=== PATIENT | female | born 1990 | race Hispanic/Latino ===

== ENCOUNTER 2017-06-10 02:10 | Inpatient (IN) | payer MEDICAID, SELFPAY ==
[2017-06-10 02:41] LABS: #Eosinphils 0.1 thou/uL (0.0-0.7); #Lymphocytes 1.7 thou/uL (1.20-3.40); #Monocytes 0.5 thou/uL (0.11-0.59); %Basophils 0.3 % (0.0-1.0); %Eosinophils 0.5 % (0.0-10.0); %Lymphocytes 15.3 % (21.0-51.0); %Monocytes 4.3 % (0.0-10.0); Hematocrit 35.9 % (36.0-47.0); Red Blood Cell (RBC) Count 3.89 mill/uL (4.20-5.40); White Blood Cell (WBC) Count 11.4 thou/uL (4.8-10.8)
[2017-06-10 02:44] LABS: Bilirubin Negative (Negative); Blood, Urine Large (Negative); Glucose, Urine (Dipstick) Negative (Negative); Ketone, Urine Negative (Negative); Nitrite Negative (Negative); Protein, Urine (Dipstick) Trace mg/dL (Neg-Trace)
[2017-06-10 02:47] LABS: Bacteria/HPF None Seen HPF (None Seen); Hyaline Casts/LPF 4-6 HYALINE CAST LPF (0-3 Hyaline); RBC/HPF GREATER THAN 50-TNTC HPF (0-3); WBC/HPF 0-3 HPF (0-3)
[2017-06-10] MEDS ORDERED: Morphine 4 MG/ML VIAL ONE (04:25)
[2017-06-10] MEDS ORDERED: Ondansetron HCl/PF 4 MG/2 ML Vial IVP PRN (05:00)
[2017-06-10] MEDS ORDERED: Morphine 4 MG/ML VIAL SLOW IVP PRN (05:03)
[2017-06-10 06:46] LABS: #Lymphocytes 1.7 thou/uL (1.20-3.40); #Monocytes 0.6 thou/uL (0.11-0.59); %Basophils 0.2 % (0.0-1.0); %Eosinophils 0.3 % (0.0-10.0); %Lymphocytes 14.7 % (21.0-51.0); %Monocytes 5.2 % (0.0-10.0); Hematocrit 32.9 % (36.0-47.0); Mean Platelet Volume 6.8 fL (7.4-10.4); Red Blood Cell (RBC) Count 3.54 mill/uL (4.20-5.40); White Blood Cell (WBC) Count 11.3 thou/uL (4.8-10.8)
[2017-06-10 07:55] VITALS: BMI 31.6
[2017-06-10] MEDS ORDERED: Morphine 10 MG/ML VIAL ONE (08:16)
[2017-06-10] MEDS: Dextrose 5%-Lactated Ringers 1,000 ML IV SCH ×2 (08:24→15:49)
--- NOTE | 2017-06-10 08:44 | ULT ---
PRELIMINARY REPORT/[facility]/EMERGENCY AFTER HOURS PROCEDURE: EXAM: US , Transvaginal CLINICAL HISTORY: 26 years old, female; Pain; Other: Pelvic pain, vag bleeding; Gestational age or lmp: 15wks; TECHNIQUE: Real-time transvaginal obstetrical ultrasound of the maternal pelvis and a first trimester with image documentation. Transvaginal imaging was used for better evaluation of the fetus and adnexa . COMPARISON: No relevant prior studies available. FINDINGS: There is a single, live intrauterine gestation. Presentation: Cephalic. heart rate: 175 BPM. 4 chamber heart: Identified Placenta: Grade: Previa: Yes No Amniotic fluid volume: anatomy: Stomach: Normal Kidneys: Normal Bladder: Normal Spine: Normal Biometry: BPD: 2.9 cm. 15 weeks, 2 days. HC: 10.9 cm. 15 weeks, 1 day. AC: 9.1 cm. 15 weeks, 2 days. FL : 1.7 cm. 15 weeks 0 days. Composite sonographic age: 15 weeks, 1 day. Estimated date of confinement: 12.01.17. Impression: Single, live intrauterine gestation without visible complication. Thank you for allowing us to participate in the care of your patient. Dictated and Authenticated by: Luli Tellez MD 06/10/2017 4:11 AM Central Time ([place] & [place]) FINAL REPORT OB ULTRASOUND: Date: 06/10/17 HISTORY: 26-year-old female with pelvic pain, vaginal bleeding. TECHNIQUE: Multiple longitudinal and transverse images of an intrauterine obtained using a multihertz curvilinear transducer. Real-time, color flow, and spectral waveform Doppler analysis used to evaluat e the fetus and pelvis. FINDINGS: Images demonstrate what appears to be a viable intrauterine at this time. There appears to be an area of linear marked hyperechogenicity within the uterine cavity as well. This may represent a n intrauterine device. Correlate with patient's history. The fetus is viable at this time with the IU D also in the uterine cavity. cardiac activity measures 175 beats/minute. Findings called to Dr. Zuleta at 0811 hours on 06/10/17. CODE CR. POS: [facility]
[2017-06-10 13:00] LABS: Hematocrit 32.5 % (36.0-47.0); Mean Platelet Volume 6.8 fL (7.4-10.4); Red Blood Cell (RBC) Count 3.51 mill/uL (4.20-5.40); White Blood Cell (WBC) Count 12.7 thou/uL (4.8-10.8)
[2017-06-10] MEDS ORDERED: Acetaminophen 500 MG TAB PO PRN (20:16)
--- NOTE | 2017-06-11 07:39 | PRG ---
DATE OF SERVICE: 06/11/2017 TIME OF SERVICE: 0715 The patient remained in Labor and Delivery unit overnight at 15 weeks with vaginal bleeding. The pat ient was noted around 0630 to have a sudden gush of bloodish tinge, but mostly clear fluid. She holly ed contractions. PHYSICAL EXAMINATION: VITAL SIGNS: Vital signs remained stable. Ultrasound was obtained which reveals now almost complete absence of amniotic fluid. FHTs are now down to 70s. The cervix does not appear visually dilated. IMPRESSION: Spontaneous rupture of membranes, now with inevitable AB at 15 weeks gestation and decre asing heart tone rate. PLAN: Will check patient out with Dr. Martinez. Anticipate a cessation of heart activity likel y within the next 12 hours. Once this is noted would proceed with Cytotec for delivery of inevitable .
[2017-06-11] MEDS: Dextrose 5%-Lactated Ringers 1,000 ML IV SCH ×4 (07:46→15:03)
[2017-06-11] MEDS ORDERED: Misoprostol 100 MCG TAB VAG SCH ×2 (08:00)
--- NOTE | 2017-06-11 08:03 | PRG ---
DATE OF SERVICE: 06/11/2017 TIME OF SERVICE: 0745 The patient over the past 10-15 minutes has developed a fever of 100.5 and significant cramps. With clinical rupture of membranes, previable gestation and fever she meets the criteria for septic incomp lete/missed AB at this time. We will go ahead and start the patient on ampicillin and gentamicin. T wo grams of ampicillin q.6h. and gentamicin 80 q.8h. I have discussed the case with Katerina, the AD o n call who is also on the Ethics Committee and she agrees with the ethical requirements for treatment of the patient at this time with antibiotics and delivery of the fetus. We will begin Cytotec 600 m cg per vagina q.4h. Dr. Martinez will be on shift in 15 minutes and is very fluent in [place] and vivian lindsey discuss plan of care with the patient. The patient's dietary status was changed to clear liquids o nly.
[2017-06-11] MEDS: Ampicillin 2 GM, Syringe 5.2 ML in Sterile Water 14.8 ML SLOW IVP SCH ×4 (08:30→22:01)
[2017-06-11] MEDS ORDERED: Morphine 10 MG/ML VIAL ONE ×2 (08:35→12:19)
[2017-06-11] MEDS ORDERED: Ampicillin 2 GM in Sodium Chloride 0.9% 100 ML IVPB SCH ×2 (09:00→12:00)
[2017-06-11] MEDS: Gentamicin Sulfate 80 MG in Premix Bag 1 BAG IVPB SCH ×3 (09:07→23:49)
--- NOTE | 2017-06-11 11:01 | ULT ---
ULTRASOUND OB FOLLOWUP: Date: 06/11/17 HISTORY: Spontaneous rupture of membranes, check feta heart tones. FINDINGS: The amniotic fluid volume is decreased from comparison examination. Amniotic fluid index is 1.0 cm. F etal heart rate is documented at 70 beats/minute. IMPRESSION: 1. Decreased amniotic fluid index, now approximately 1.0 cm. 2. Abnormally low heart rate of 70 beats/minute. POS: [facility]
[2017-06-11] MEDS ORDERED: Oxytocin 10 UNITS/ML VIAL ONE (11:55)
[2017-06-11] MEDS: Misoprostol 100 MCG TAB VAG SCH ×2 (12:11→17:32)
[2017-06-11] MEDS ORDERED: Gentamicin Sulfate 80 MG in Premix Bag 1 BAG IVPB SCH (14:00)
[2017-06-11] MEDS: Lactated Ringer's 1,000 ML IV SCH ×3 (15:05→23:48)
[2017-06-11] MEDS ORDERED: Ibuprofen 800 MG TAB PO PRN (15:20)
[2017-06-11] MEDS ORDERED: Ibuprofen 800 MG TAB PO SCH (15:30)
[2017-06-11] MEDS ORDERED: Lactated Ringer's 1,000 ML IV SCH (16:00)
[2017-06-11] MEDS ORDERED: Misoprostol 200 MCG TAB PR SCH ×2 (18:30)
[2017-06-11] MEDS ORDERED: Misoprostol 200 MCG TAB PO SCH (18:30)
[2017-06-11] MEDS ORDERED: Bisacodyl 10 MG SUPP PR PRN (19:04)
[2017-06-11] MEDS ORDERED: LR / Pitocin 40 units/1000 ml 1,000 ML IV SCH (19:04)
[2017-06-11] MEDS ORDERED: Milk Of Magnesia 30 ML UDCUP PO PRN (19:04)
[2017-06-11] MEDS ORDERED: Adacel (T-DAP) 0.5 ML VIAL IM ONE (19:04)
[2017-06-11] MEDS ORDERED: Ferrous Sulfate 325 MG TAB PO SCH (19:15)
[2017-06-11 20:58] LABS: #Lymphocytes 1.7 thou/uL (1.20-3.40); #Monocytes 0.6 thou/uL (0.11-0.59); #Neutrophils 10.1 thou/uL (1.40-6.50); %Basophils 0.2 % (0.0-1.0); %Eosinophils 0.3 % (0.0-10.0); %Lymphocytes 13.3 % (21.0-51.0); %Monocytes 4.9 % (0.0-10.0); Hematocrit 19.5 % (36.0-47.0); Mean Platelet Volume 6.8 fL (7.4-10.4); Red Blood Cell (RBC) Count 2.09 mill/uL (4.20-5.40); White Blood Cell (WBC) Count 12.4 thou/uL (4.8-10.8)
[2017-06-11] MEDS: Ibuprofen 800 MG TAB PO SCH (22:02)
[2017-06-11] MEDS: Docusate (Surfak) 240 MG CAP PO SCH (22:02)
[2017-06-12] MEDS: Ampicillin 2 GM, Syringe 5.2 ML in Sterile Water 14.8 ML SLOW IVP SCH (03:06)
[2017-06-12] MEDS: Ibuprofen 800 MG TAB PO SCH ×2 (05:23→16:26)
[2017-06-12 05:59] LABS: Hematocrit 17.8 % (36.0-47.0); Mean Platelet Volume 6.9 fL (7.4-10.4); Red Blood Cell (RBC) Count 1.88 mill/uL (4.20-5.40); White Blood Cell (WBC) Count 8.5 thou/uL (4.8-10.8)
[2017-06-12] MEDS: Lactated Ringer's 1,000 ML IV SCH (06:31)
[2017-06-12] MEDS ORDERED: Ferrous Sulfate 325 MG TAB PO SCH (08:00)
--- NOTE | 2017-06-12 08:16 | DN ---
DATE OF DELIVERY: 06/11/2017 The patient delivered a nonviable 15-week fetus on 06/11/2017 at 11:40 a.m. The estimated blood loss was 1000 mL. Maternal complications; chorioamnionitis and retained IUD which delivered with placenta and acute blood loss anemia. The placenta delivered with some assistance of ring forceps at the cervical os. Delivery time of placenta was 1305. Mother remained stable in the room. Baby was delivered without a heartbeat and appeared to grossly have normal anatomy. Dr Martinez is the delivering physician. [facility]ENTER[facility]
--- NOTE | 2017-06-12 08:27 | SS ---
DATE OF ADMISSION: 06/11/2017 DATE OF DISCHARGE: 06/12/2017 ADMITTING DIAGNOSIS: Threatened . DISCHARGE DIAGNOSES: Chorioamnionitis, premature rupture of membranes, completed AB and acut e blood loss anemia. PROCEDURE: Vaginal delivery of a 15-week demise. CONSULTATIONS: None. HOSPITAL COURSE: Patient is a 26-year-old female who presented to the emergency room after having ac hopi severe bleeding and was admitted to the hospital for observation for threatened AB. At that time , ultrasound demonstrated a normal appearing fetus in vertex presentation with a closed cervix and vi able heartbeat. Over the course of the patient's stay, she stopped bleeding and by the next morning, spontaneously ruptured and spiked a fever with repeat ultrasound demonstrating no fluid and a heart rate of 70. At this point time due to maternal education, patient was started on Cytotec to au gment her labor and subsequently delivered a nonviable 15-week fetus that had no heartbeat at time of delivery. The placenta delivered about an hour and half later with some assistance the os. Total e stimated blood loss was approximately 1000 mL by weight. However, her hemoglobin dropped from 11-5.9 and hematocrit 32.5-17.8. The patient's course has been uncomplicated. Her v ital signs remained stable with no signs of symptomatic anemia. Patient is able to ambulate to the b athroom and back without any complaints or concerns. She denies any dizziness, lightheadedness, ches t pain, shortness of breath. The patient has remained on antibiotics for 24 hours postdelivery. PHYSICAL EXAMINATION: VITAL SIGNS: This morning, current blood pressure at sleeping, blood pressure 80/44, pulse is 78, re spiratory rate of 16, temperature 98.5. Of note, patient has had low blood pressures for the entire admission with her baseline in the 80s-90s systolic at rest. Patient this morning denies any chest p ain, shortness of breath, dizziness, lightheadedness. She reports her bleeding is scant. ABDOMEN: Fundus is firm. EXTREMITIES: Nontender, nonedematous. GENITOURINARY: She has one spot on her pad. The patient has been asked prior to discharge to ambulate the halls and walk one flight of stairs. S hould the patient remained asymptomatic, patient will be discharged without blood transfusion. It is suspected that part of her lab results were a result of significant fluid administration as she has had 6 liters of fluid in the last 2 days with much of it in the last 24 hours. Should the patient ex hibited symptoms with this activity, patient will be transfused prior to discharge. Patient has inst ructions to follow up at the Clinic in the next 2 weeks. She is to seek medical attention s ooner if she experiences fever, increasing pain or bleeding or becomes symptomatic with her anemia in cluding chest pain, dizziness, lightheadedness, headache, extreme fatigue.
[2017-06-12] MEDS: Docusate (Surfak) 240 MG CAP PO SCH (08:39)
[2017-06-12] MEDS ORDERED: Prenatal Vitamin 1 TAB PO SCH (09:00)
[2017-06-12 18:04] VITALS: BP 90/50; TEMP 98.1
== END 2017-06-12 18:55 | disposition home or self-care (01) | DRG 770 ==
LOC: ERS 02:10 → OBSVTOIN 05:00 → L&D 05:00 → 3SW 06-11 18:52
PROVIDERS: ADMIT Obstetrics & Gynecology Obstetrics; ATTEND Obstetrics & Gynecology Obstetrics
PROC: 10D17Z9 Manual Extraction of Products of Conception, Retained, Via Natural or Artificial Opening (ICD-10-PCS; principal; 2017-06-11)
PROC: 10E0XZZ Delivery of Products of Conception, External Approach (ICD-10-PCS; 2017-06-11)
PROC: 4A0HXCZ Measurement of Products of Conception, Cardiac Rate, External Approach (ICD-10-PCS; 2017-06-11)
DX: O02.1 Missed abortion (principal); A41.9 Sepsis, unspecified organism; O75.3 Other infection during labor; O41.1230 Chorioamnionitis, third trimester, not applicable or unspecified; O72.0 Third-stage hemorrhage; O26.33 Retained intrauterine contraceptive device in pregnancy, third trimester; O90.81 Anemia of the puerperium; O67.9 Intrapartum hemorrhage, unspecified; Z37.1 Single stillbirth; Z3A.15 15 weeks gestation of pregnancy; Y84.8 Other medical procedures as the cause of abnormal reaction of the patient, or of later complication, without mention of misadventure at the time of the procedure
CPT/HCPCS: 36415; 36430; 76815; 76816; 76856; 81003; 81015; 84702; 85025; 85027; 85384; 86850; 86900; 86901; 88300; 88305; 96361; 96374; 99285; A4216; J0290; J0595; J1580; J2270; J2405; J2590; J7050; P9016

== ENCOUNTER 2018-05-13 07:47 | Outpatient (CLI) | payer OTHER ==
--- NOTE | 2018-05-13 10:27 | ULT ---
ULTRASOUND OB COMPLETE STANDARD: History Anatomy. COMPARISON: None. FINDINGS: Real-time, perez scale, and color evaluation of the gravid uterus was performed. The cervix measures 3.8 cm in length. The placenta is anterior. There is a single viable intrauterine with average ultrasound age 20 weeks 1 day, estimated date of delivery 09/29/2018. Estimated weight is 12 ounces, 25th percentile. Biparietal diameter 4.51 cm, 19 weeks 5 days Head circumference 17.36 cm, 20 weeks 0 days Abdominal circumference 16.35 cm, 20 weeks 4 days Femur length 3.27 cm, 20 weeks 2 days Heart rate documented at 149 b.p.m. The anatomy is normal including the 3-vessel cord, spine, cisterna magna, lateral ventricles, stomach , kidneys, upper and lower extremities, 3-vessel cord. IMPRESSION: Normal single viable intrauterine . POS: [facility]
== END 2018-05-13 07:48 | disposition home or self-care (01) ==
LOC: BICULT 07:47
PROVIDERS: ATTEND Family Medicine
DX: Z34.82 Encounter for supervision of other normal pregnancy, second trimester (principal); Z3A.20 20 weeks gestation of pregnancy
CPT/HCPCS: 76805

== ENCOUNTER 2018-09-13 11:30 | Inpatient (IN) | payer OTHER, SELFPAY ==
[2018-09-19] MEDS ORDERED: Penicillin G Potassium 5 MILL.UNITS in Sodium Chloride 0.9% 100 ML IVPB SCH (08:56)
[2018-09-19] MEDS ORDERED: Carboprost 250 MCG/ML AMP IM PRN (08:56)
[2018-09-19] MEDS ORDERED: Promethazine HCl 25 MG/ML VIAL IM PRN ×3 (08:56→15:38)
[2018-09-19] MEDS ORDERED: NS / Oxytocin 40 units/1000ml 1,000 ML IV PRN (08:56)
[2018-09-19] MEDS ORDERED: Diphenoxylate HCl/Atropine Tablet PO PRN (08:56)
[2018-09-19] MEDS ORDERED: Lidocaine 1% (PF) 30 ML VIAL SC PRN (08:56)
[2018-09-19] MEDS ORDERED: Misoprostol 200 MCG TAB PR PRN (08:56)
[2018-09-19] MEDS ORDERED: Methylergonovine 0.2 MG/ML VIAL IM PRN (08:56)
[2018-09-19] MEDS ORDERED: HYDROcodone/Acetaminophen 5/325 mg Tablet PO PRN ×3 (08:56→17:52)
[2018-09-19] MEDS ORDERED: NS w/ Oxytocin 10 units 500 ML IV SCH ×2 (08:56)
[2018-09-19] MEDS ORDERED: Ibuprofen 800 MG TAB PO PRN (08:56)
[2018-09-19] MEDS ORDERED: Butorphanol Tartrate 1 MG/ML VIAL SLOW IVP PRN (08:56)
[2018-09-19] MEDS ORDERED: Ondansetron PF 4 MG/2 ML Vial IVP PRN ×4 (08:56→17:52)
[2018-09-19] MEDS ORDERED: Bupivacaine 0.25% HCL 30 ML VIAL ONE (09:00)
[2018-09-19 09:37] VITALS: BMI 31.7
--- NOTE | 2018-09-19 09:59 | PDOC.EVN ---
Event Note - Event Note Event Note: Asked to evaluate presentation prior to starting pitocin by labor RN. PARVEEN at confirms vtx. Dr. Arriaga notified.
[2018-09-19] MEDS: Lactated Ringer's 1,000 ML IV SCH ×2 (10:05→21:23)
[2018-09-19 10:39] LABS: Hemoglobin 9.2 g/dL (12.0-16.0); Mean Corpuscular HGB CONC 32.1 g/dL (32.0-36.0); Mean Corpuscular Hemoglobin 25.9 pg (27.0-31.0); Mean Corpuscular Volume 80.6 fL (78.0-98.0); Platelet Count 236 thou/uL (130-400); RBC Distribution Width 14.6 % (11.5-14.5); Red Blood Cell (RBC) Count 3.57 mill/uL (4.20-5.40); White Blood Cell (WBC) Count 7.3 thou/uL (4.8-10.8)
[2018-09-19 11:17] LABS: Syphilis Antibody Nonreactive (Nonreactive); Syphilis Antibody Index 0.09 S/CO (<1.00 Non-Reactive)
[2018-09-19] MEDS ORDERED: Penicillin G 2.5 MILL.units 2.5 MILL.UNITS in Premix Bag 1 BAG IVPB SCH (12:00)
[2018-09-19 13:40] LABS: HBSAg Index 0.29 S/CO (0-0.99); Hep B Surf Ag Non-Reactive S/CO (NonReactive)
[2018-09-19] MEDS ORDERED: Fentanyl 4 mcg/Bup 0.1% Cadd 100 ML ONE (14:28)
[2018-09-19] MEDS ORDERED: Lidocaine 1.5%/Epinephrine 1:200,000 5 ML AMPUL IJ ONE (14:30)
[2018-09-19] MEDS ORDERED: diphenhydrAMINE 50 MG/ML VIAL IVP PRN ×2 (14:57→15:36)
[2018-09-19] MEDS ORDERED: Acetaminophen 325 MG TAB PO PRN ×2 (14:57→15:35)
[2018-09-19] MEDS ORDERED: Naloxone HCl 0.4 mg/ml Vial IVP PRN ×4 (14:57→15:38)
[2018-09-19] MEDS ORDERED: Lactated Ringer's 500 ML IV PRN ×2 (14:57→15:37)
[2018-09-19] MEDS ORDERED: Eucerin (Mineral Oil/Petrolatum,White) 30 gm Jar TOP PRN ×2 (14:57→15:37)
[2018-09-19] MEDS ORDERED: ePHEDrine/0.9% NaCl/PF SYRINGE 50 mg/10 ml SLOW IVP PRN ×2 (14:57→15:30)
[2018-09-19] MEDS ORDERED: Communication Order-Pharmacy FS SCH (15:00)
[2018-09-19] MEDS ORDERED: Fentanyl 4 mcg/Bupivacaine 0.1% Cassette 100 ML EPIDURAL SCH ×2 (15:00→15:45)
[2018-09-19] MEDS ORDERED: NS / Oxytocin 40 units/1000ml 1,000 ML ONE (16:47)
[2018-09-19] MEDS ORDERED: Bisacodyl 10 MG SUPP PR PRN (17:52)
[2018-09-19] MEDS ORDERED: Benzocaine-Menthol 82.5 ML CAN TOP PRN (17:52)
[2018-09-19] MEDS ORDERED: NS / Oxytocin 40 units/1000ml 1,000 ML IV SCH (17:52)
[2018-09-19] MEDS ORDERED: Milk Of Magnesia 30 ML UDCUP PO PRN (17:52)
[2018-09-19] MEDS ORDERED: Lanolin Ointment 7 GM TUBE TOP PRN (17:52)
[2018-09-19] MEDS ORDERED: diphenhydrAMINE 25 MG CAP PO PRN (17:52)
[2018-09-19] MEDS: Ibuprofen 800 MG TAB PO SCH (21:53)
[2018-09-19] MEDS: Docusate Calcium (SURFAK) 240 MG CAP PO SCH ×2 (21:53→21:57)
[2018-09-20 06:26] LABS: Hemoglobin 9.7 g/dL (12.0-16.0); Mean Corpuscular HGB CONC 31.7 g/dL (32.0-36.0); Mean Corpuscular Hemoglobin 25.6 pg (27.0-31.0); Mean Corpuscular Volume 80.8 fL (78.0-98.0); Mean Platelet Volume 8.3 fL (7.4-10.4); Platelet Count 191 thou/uL (130-400); RBC Distribution Width 14.7 % (11.5-14.5); Red Blood Cell (RBC) Count 3.78 mill/uL (4.20-5.40); White Blood Cell (WBC) Count 11.1 thou/uL (4.8-10.8)
[2018-09-20] MEDS: Ibuprofen 800 MG TAB PO SCH ×2 (07:00→13:54)
[2018-09-20] MEDS: Docusate Calcium (SURFAK) 240 MG CAP PO SCH (08:38)
[2018-09-20] MEDS: Ferrous Sulfate 325 MG TAB PO SCH ×2 (08:38→17:19)
[2018-09-20] MEDS ORDERED: Prenatal Vitamin 1 TAB PO SCH (09:00)
[2018-09-20 11:38] VITALS: TEMP 98.1
[2018-09-20] MEDS ORDERED: Communication Order-Pharmacy FS SCH (15:30)
[2018-09-20 17:33] VITALS: BP 99/55
== END 2018-09-20 19:30 | disposition home or self-care (01) | DRG 807 ==
LOC: L&D/OP 11:30 → EDSTATUS 15:10 → L&D 09-19 08:33 → 3SW 09-20 06:13
PROVIDERS: ADMIT Family Medicine; ATTEND Family Medicine
PROC: 10E0XZZ Delivery of Products of Conception, External Approach (ICD-10-PCS; principal; 2018-09-19)
PROC: 3E033VJ Introduction of Other Hormone into Peripheral Vein, Percutaneous Approach (ICD-10-PCS; 2018-09-19)
PROC: 10907ZC Drainage of Amniotic Fluid, Therapeutic from Products of Conception, Via Natural or Artificial Opening (ICD-10-PCS; 2018-09-19)
DX: O69.81X0 Labor and delivery complicated by cord around neck, without compression, not applicable or unspecified (principal); Z37.0 Single live birth; O75.89 Other specified complications of labor and delivery; Z3A.39 39 weeks gestation of pregnancy
CPT/HCPCS: 36415; 51702; 76815; 85027; 86780; 86850; 86900; 86901; 87340; J2210; J3490; S0020

== ENCOUNTER 2018-09-13 12:40 | Inpatient (IN) | payer OTHER, SELFPAY ==
[2018-09-13] MEDS ORDERED: Ondansetron PF 4 MG/2 ML Vial IVP PRN (13:05)
[2018-09-13] MEDS ORDERED: Lactated Ringer's 1,000 ML IV SCH (13:05)
[2018-09-13 13:30] VITALS: BMI 30.5
[2018-09-13 13:31] VITALS: TEMP 98.1
[2018-09-13 14:10] LABS: Hemoglobin 10.8 g/dL (12.0-16.0); Mean Corpuscular HGB CONC 32.2 g/dL (32.0-36.0); Mean Corpuscular Hemoglobin 26.1 pg (27.0-31.0); Mean Platelet Volume 9.8 fL (7.4-10.4); Platelet Count 302 thou/uL (130-400); RBC Distribution Width 14.5 % (11.5-14.5); Red Blood Cell (RBC) Count 4.15 mill/uL (4.20-5.40); White Blood Cell (WBC) Count 8.6 thou/uL (4.8-10.8)
[2018-09-13 14:52] VITALS: BP 100/73
[2018-09-13 14:53] LABS: Syphilis Antibody Nonreactive (Nonreactive); Syphilis Antibody Index 0.12 S/CO (<1.00 Non-Reactive)
[2018-09-13 14:54] LABS: HBSAg Index 0.27 S/CO (0-0.99); Hep B Surf Ag Non-Reactive S/CO (NonReactive)
== END 2018-09-13 13:49 | disposition home or self-care (01) | DRG 833 ==
LOC: L&D 12:40 → EDSTATUS 13:00
PROVIDERS: ADMIT Family Medicine; ATTEND Family Medicine
DX: O32.2XX0 Maternal care for transverse and oblique lie, not applicable or unspecified (principal); Z3A.38 38 weeks gestation of pregnancy
CPT/HCPCS: 36415; 76815; 85027; 86780; 86850; 86900; 86901; 87340; 99285

== ENCOUNTER 2019-12-12 13:33 | Outpatient (CLI) | payer OTHER ==
--- NOTE | 2019-12-12 16:39 | ULT ---
OB ULTRASOUND: 12/12/19 HISTORY: anatomy. FINDINGS: A single live intrauterine gestation is seen with measurements corresponding to an estimated gestatio nal age of 20 weeks, 4 days and DELMI at 04/26/20. The estimated weight measures 358 grams or 13 o z (27th percentile by Hadlock criteria). measurements are as follows: BPD 4.73 cm 20 weeks, 3 days HC 17.65 cm 20 weeks, 1 day AC 15.38 cm 20 weeks, 5 days FL 3.36 cm 20 weeks, 4 days heart rate measures 152 beats per minute. Placenta is posteriorly located without evidence of placenta previa. The RENAY measures 10.2 cm. Cervical length measures 4.8 cm. A three vessel cord, cord insertion, kidneys, bladder, stomach, four chambered heart, lateral v entricles, cerebellum, spine, lips/nose, upper and lower extremities are visualized. No definite feta l anomalies are seen. Prominent uterine vessels are present. IMPRESSION: Single live IUP of 20 weeks, 4 days estimated gestational age and DELMI at 04/26/20. POS: [facility]
== END 2019-12-12 13:34 | disposition home or self-care (01) ==
LOC: BICULT 13:33
PROVIDERS: ATTEND Family Medicine
DX: Z34.82 Encounter for supervision of other normal pregnancy, second trimester (principal); Z3A.20 20 weeks gestation of pregnancy
CPT/HCPCS: 76805

== ENCOUNTER 2020-04-27 05:30 | Inpatient (IN) | payer OTHER, SELFPAY ==
[2020-04-27] MEDS: Lactated Ringer's 1,000 ML IV SCH ×2 (07:10→09:13)
[2020-04-27] MEDS ORDERED: Misoprostol 200 MCG TAB PR PRN (07:31)
[2020-04-27] MEDS ORDERED: NS / Oxytocin 40 units/1000ml 1,000 ML IV PRN (07:31)
[2020-04-27] MEDS ORDERED: Methylergonovine 0.2 MG/ML VIAL IM PRN (07:31)
[2020-04-27] MEDS ORDERED: Ibuprofen 800 MG TAB PO PRN (07:31)
[2020-04-27] MEDS ORDERED: Lidocaine 1% (PF) 30 ML VIAL SC PRN (07:31)
[2020-04-27] MEDS ORDERED: Ondansetron PF 4 MG/2 ML Vial IVP PRN ×3 (07:31→13:50)
[2020-04-27] MEDS ORDERED: Carboprost 250 MCG/ML AMP IM PRN (07:31)
[2020-04-27] MEDS ORDERED: Diphenoxylate HCl/Atropine Tablet PO PRN (07:31)
[2020-04-27] MEDS ORDERED: hydrALAZINE 20 MG/ML VIAL SLOW IVP PRN (07:31)
[2020-04-27] MEDS ORDERED: HYDROcodone/Acetaminophen 5/325 mg Tablet PO PRN ×3 (07:31→13:50)
[2020-04-27] MEDS ORDERED: Promethazine HCl 25 MG/ML VIAL IM PRN ×3 (07:31→13:50)
[2020-04-27] MEDS ORDERED: Butorphanol Tartrate 1 MG/ML VIAL SLOW IVP PRN (07:31)
[2020-04-27 07:44] LABS: Hemoglobin 10.1 g/dL (12.0-16.0); Mean Corpuscular HGB CONC 32.3 g/dL (32.0-36.0); Mean Corpuscular Hemoglobin 25.2 pg (27.0-31.0); Mean Platelet Volume 9.4 fL (7.4-10.4); Platelet Count 304 thou/uL (130-400); RBC Distribution Width 15.5 % (11.5-14.5); Red Blood Cell (RBC) Count 4.02 mill/uL (4.20-5.40); White Blood Cell (WBC) Count 9.8 thou/uL (4.8-10.8)
[2020-04-27] MEDS ORDERED: NS w/ Oxytocin 10 units 500 ML IV SCH ×2 (07:45)
[2020-04-27] MEDS ORDERED: Penicillin G Potassium 5 MILL.UNITS in Sodium Chloride 0.9% 100 ML IVPB SCH (08:00)
[2020-04-27] MEDS ORDERED: DISCONTINUE ALL PREVIOUS NARCOTICS FS SCH (08:15)
[2020-04-27] MEDS ORDERED: Bupivacaine 0.5% 20 ML, fentaNYL Citrate/PF 400 MCG in Sodium Chloride 0.9% 72 ML EPIDURAL SCH (08:15)
[2020-04-27 08:24] LABS: HBSAg Index 0.21 S/CO (0-0.99); Hep B Surf Ag Non-Reactive S/CO (NonReactive)
[2020-04-27 08:29] LABS: Syphilis Antibody Nonreactive (Nonreactive); Syphilis Antibody Index 0.06 S/CO (<1.00 Non-Reactive)
[2020-04-27 08:43] VITALS: BMI 35.5
[2020-04-27] MEDS ORDERED: Acetaminophen 325 MG TAB PO PRN (09:28)
[2020-04-27] MEDS ORDERED: Naloxone HCl 0.4 mg/ml Vial IVP PRN ×2 (09:28)
[2020-04-27] MEDS ORDERED: diphenhydrAMINE 50 MG/ML VIAL IVP PRN (09:28)
[2020-04-27] MEDS ORDERED: EPHEDRINE 25 MG/5 ML SYRINGE SLOW IVP PRN (09:28)
[2020-04-27] MEDS ORDERED: Lactated Ringer's 500 ML IV PRN (09:28)
[2020-04-27] MEDS ORDERED: Communication Order-Pharmacy FS PRN (09:30)
[2020-04-27] MEDS ORDERED: Fentanyl 4 mcg/Bupivacaine 0.1% Cassette 100 ML EPIDURAL SCH (09:30)
[2020-04-27] MEDS ORDERED: Penicillin G 2.5 MILL.units 2.5 MILL.UNITS in Premix Bag 1 BAG IVPB SCH (12:00)
[2020-04-27] MEDS ORDERED: NS / Oxytocin 40 units/1000ml 1,000 ML IV SCH (13:50)
[2020-04-27] MEDS ORDERED: hydrALAZINE 20 MG/ML VIAL SLOW IVP SCH (13:50)
[2020-04-27] MEDS ORDERED: diphenhydrAMINE 25 MG CAP PO PRN (13:50)
[2020-04-27] MEDS ORDERED: Bisacodyl 10 MG SUPP PR PRN (13:50)
[2020-04-27] MEDS ORDERED: Lanolin Ointment 7 GM TUBE TOP PRN (13:50)
[2020-04-27] MEDS ORDERED: Milk Of Magnesia 30 ML UDCUP PO PRN (13:50)
[2020-04-27] MEDS: Ibuprofen 800 MG TAB PO SCH ×2 (13:58→21:03)
[2020-04-27] MEDS: Ferrous Sulfate 325 MG TAB PO SCH (15:43)
[2020-04-27] MEDS: Docusate Calcium (SURFAK) 240 MG CAP PO SCH (21:03)
[2020-04-28] MEDS: Ibuprofen 800 MG TAB PO SCH ×2 (05:16→14:04)
[2020-04-28] MEDS ORDERED: Prenatal Vitamin 1 TAB PO SCH (09:00)
[2020-04-28] MEDS ORDERED: FLU VACC QS2020-21(6MOS UP)/PF 60 MCG/0.5 ML SYRINGE IM ONE (09:15)
[2020-04-28] MEDS: Docusate Calcium (SURFAK) 240 MG CAP PO SCH (09:34)
[2020-04-28] MEDS: Ferrous Sulfate 325 MG TAB PO SCH (09:34)
[2020-04-28 12:04] VITALS: BP 107/68; TEMP 98.4
[2020-04-28] MEDS ORDERED: Adacel (T-DAP) 0.5 ML SYRINGE IM ONE (13:50)
== END 2020-04-28 16:25 | disposition home or self-care (01) | DRG 807 ==
LOC: L&D 06:32 → 3SW 13:38
PROVIDERS: ADMIT Family Medicine; ATTEND Family Medicine
PROC: 10E0XZZ Delivery of Products of Conception, External Approach (ICD-10-PCS; principal; 2020-04-27)
PROC: 10907ZC Drainage of Amniotic Fluid, Therapeutic from Products of Conception, Via Natural or Artificial Opening (ICD-10-PCS; 2020-04-27)
DX: O48.0 Post-term pregnancy (principal); Z37.0 Single live birth; Z3A.40 40 weeks gestation of pregnancy
CPT/HCPCS: 36415; 51702; 85027; 86780; 86850; 86900; 86901; 87340; J3010; J3490

== ENCOUNTER 2023-05-20 00:56 | Emergency (ER) | payer OTHER, SELFPAY ==
[2023-05-20 01:24] LABS: #Eosinphils 0.1 thou/uL (0.0-0.7); #Monocytes 0.5 thou/uL (0.11-0.59); #Neutrophils 5.4 thou/uL (1.40-6.50); %Basophils 0.4 % (0.0-1.0); %Eosinophils 1.1 % (0.0-10.0); %Lymphocytes 27.7 % (21.0-51.0); %Monocytes 6.4 % (0.0-10.0); %Neutrophils 64.2 % (42.0-75.0); Hematocrit 39.4 % (36.0-47.0); Hemoglobin 13.1 g/dL (12.0-16.0); Mean Corpuscular HGB CONC 33.2 g/dL (32.0-36.0); Mean Corpuscular Hemoglobin 30.9 pg (27.0-31.0); Mean Corpuscular Volume 92.9 fl (78.0-98.0); Mean Platelet Volume 9.8 fL (7.4-10.4); Platelet Count 318 10x3/uL (130-400); RBC Distribution Width 13.7 % (11.5-14.5); Red Blood Cell (RBC) Count 4.24 mill/uL (4.20-5.40); White Blood Cell (WBC) Count 8.5 10x3/uL (4.8-10.8)
[2023-05-20 01:37] LABS: BHCG - Serum POSITIVE (NEGATIVE); Pregs Control Background? CLEAR/WHITE (CLR/WHITE); Pregs Control Bar Appear? YES (CONTROL BAR)
[2023-05-20 01:50] LABS: ALT (SGPT) 241 U/L (8-55); AST (SGOT) 147 U/L (5-34); Albumin 4.4 g/dL (3.5-5.0); Alkaline Phosphatase 67 U/L (40-110); Anion Gap 15 mmol/L (10-20); BUN (Urea Nitrogen) 10 mg/dL (7.0-18.7); Bilirubin, Total 0.5 mg/dL (0.2-1.2); Calc. Creatinine Clearance 0 mL/min (70-130); Calcium 9.4 mg/dL (7.8-10.44); Carbon Dioxide 22 mmol/L (22-29); Chloride 105 mmol/L (98-107); Estimated GFR 112; Globulin 3.6 g/dL (2.4-3.5); Glucose 131 mg/dL (70-105); Lipase 19 U/L (8-78); Magnesium 2.2 mg/dL (1.6-2.6); Sodium 138 mmol/L (136-145)
[2023-05-20] MEDS ORDERED: Ondansetron PF 4 MG/2 ML Vial ONE (02:27)
[2023-05-20 03:19] LABS: Bilirubin Negative (Negative); Blood, Urine Negative (Negative); CAUTI Indications for Culture Dysuria,urgency,freq; Clarity Turbid (Clear); Glucose, Urine (Dipstick) Normal (Negative); Ketone, Urine Negative (Negative); Leukocyte 250 Leu/uL (Negative); Nitrite Negative (Negative); Protein, Urine (Dipstick) Negative (Neg-Trace); Urobilinogen Normal mg/dL (Less than 2); pH, Urine 6.5 (5.0-9.0)
[2023-05-20 03:24] LABS: Bacteria/HPF Rare-Few HPF (None Seen)
[2023-05-20 03:25] LABS: Urine Culture Reflex No No
== END 2023-05-20 05:55 | disposition home or self-care (01) ==
LOC: ERS 00:56
DX: O21.9 Vomiting of pregnancy, unspecified (principal); O99.891 Other specified diseases and conditions complicating pregnancy; R30.0 Dysuria; R10.13 Epigastric pain; Z3A.01 Less than 8 weeks gestation of pregnancy
CPT/HCPCS: 36415; 76705; 80053; 81001; 83690; 83735; 84702; 84703; 85025; 96361; 96374; J2405

== ENCOUNTER 2023-08-31 14:56 | Outpatient (CLI) | payer OTHER | END 2023-08-31 14:57 | disposition home or self-care (01) | LOC: BICULT 14:56 | PROVIDERS: ATTEND Family Medicine | DX: O09.522 Supervision of elderly multigravida, second trimester (principal); Z3A.21 21 weeks gestation of pregnancy | CPT/HCPCS: 76805 ==